=== PATIENT | male | born 1945 | race African-American/Black ===

== ENCOUNTER 2019-02-05 15:36 | Emergency (ER) | payer MEDICARE, OTHER ==
[~2019-02-05] VITALS: Ht 180.3 cm; Wt 75.0 kg
[~2019-02-05 15:36] MED LIST: ALBU18HF2 IH; CLONIDINE; COUMADIN; NITR0.4T49 SL
[2019-02-05] MEDS ORDERED: TETANUS, DIPHTHERIA, PERTUSSIS VAC/PF 0.5ML (>7YR OLD) IM ONE (17:45)
[2019-02-05 18:13] LABS: CHLORIDE 101 mEq/L (98-107)
[2019-02-05 18:20] LABS: BASOPHILS % 0.8 % (0.0-2.0); EOSINOPHILS % 0.8 % (0.0-5.0); HEMATOCRIT. 34.7 % (42.0-52.0); HEMOGLOBIN. 11.6 g/dL (14.0-18.0); LYMPHOCYTES % 55.8 % (20.0-50.0); MEAN CORPUSCULAR HEMOGLOBIN 31.8 pg (28.0-32.0); MEAN PLATELET VOLUME 6.3 fl (7.4-10.4); MONOCYTES % 11.8 % (2.0-8.0); NEUTROPHILS % 30.8 % (40.0-76.0); PLATELET 199 x1000/uL (130-400); RED BLOOD CELL COUNT 3.65 mill/uL (4.7-6.1); RED CELL DISTRIBUTION WIDTH 14.6 % (11.6-14.6)
[2019-02-05 18:28] LABS: ETHANOL BLOOD 303 mg/dL
[2019-02-05 21:31] VITALS: BP 139/76
== END 2019-02-05 21:32 | disposition home or self-care (01) ==
LOC: ER 15:36
DX: T51.0X1A Toxic effect of ethanol, accidental (unintentional), initial encounter (principal); Y92.89 Other specified places as the place of occurrence of the external cause; J45.909 Unspecified asthma, uncomplicated; I25.2 Old myocardial infarction; Z79.899 Other long term (current) drug therapy
CPT/HCPCS: 36415; 80320; 90471; 90715; 99284; G0480